=== PATIENT | male | born 1995 | race Two or more races ===

== ENCOUNTER 2024-07-17 18:17 | Emergency (ER) | payer OTHER ==
[~2024-07-17] VITALS: Ht 180.3 cm; Wt 80.2 kg
[2024-07-17 19:19] VITALS: BP 147/92; PULSE 65; RESP 16; TEMP 98.9; O2SAT 99
[2024-07-17] MEDS: TETANUS-DIPTH-ACEL PERTUSSIS 0.5ML SYR Tdap IM ONE (20:19)
== END 2024-07-17 20:25 | disposition home or self-care (01) ==
LOC: ER 18:17
DX: S61.213A Laceration without foreign body of left middle finger without damage to nail, initial encounter (principal); W26.8XXA Contact with other sharp object(s), not elsewhere classified, initial encounter; Y93.89 Activity, other specified; Y92.89 Other specified places as the place of occurrence of the external cause; Y99.8 Other external cause status
CPT/HCPCS: 12001; 73140; 90471; 90715; 99283; J7030